=== PATIENT | male | born 1960 | race Caucasian/White ===

== ENCOUNTER → 2016-12-08 | Outpatient (CLI) | payer OTHER ==
[2016-12-08 08:56] LABS: CH 31.5; CHCM 32.3; HCT 44.2 % (39.0-53.0); HDW 2.52; HGB 14.5 gm/dL (13.0-17.5); MCHC 32.7 g/dL (31.0-37.0); MCV 97.9 fL (80.0-100.0); RBC 4.52 m/uL (4.30-5.90); RDW 13.4 % (11.5-15.5); WBC 6.7 k/uL (3.8-10.6)
[2016-12-08 09:07] LABS: Amorphous Sediment,Urine Few /hpf; Appearance,Urine Cloudy (Clear); Bilirubin,Urine Negative (Negative); Glucose,Urine (UA) Negative (Negative); Ketones,Urine Negative (Negative); Leukocyte Esterase,Urine Negative (Negative); Mucus,Urine Rare /hpf; Nitrite,Urine Negative (Negative); PH, Urine 7.5 (5.0-8.0); Particle Count 23905; Protein,Urine Negative (Negative); Squamous Epithelial Cell,Urine <1 /hpf (0-4); UA Billing (MACRO vs. MICRO) MICRO; Urobilinogen,Urine <2.0 mg/dL (<2.0)
[2016-12-08 10:34] LABS: ALT 25 U/L (21-72); AST 21 U/L (17-59); Alkaline Phosphatase 61 U/L (38-126); Anion Gap 7 mmol/L; Blood Urea Nitrogen 8 mg/dL (9-20); Calcium 9.1 mg/dL (8.4-10.2); Carbon Dioxide 30 mmol/L (22-30); Chloride 107 mmol/L (98-107); Cholesterol 161 mg/dL (<200); Glucose 113 mg/dL (74-99); HDL Cholesterol 59 mg/dL (40-60); Non-African American GFR(MDRD) >60 (>60 ml/min/1.73 sqM); Potassium 4.2 mmol/L (3.5-5.1); Sodium 144 mmol/L (137-145); Total Bilirubin 0.6 mg/dL (0.2-1.3); Total Protein 6.3 g/dL (6.3-8.2); Triglycerides 89 mg/dL (<150)
[2016-12-08 12:52] LABS: Prostate Specific Antigen 0.35 ng/mL (0.00-4.00)
== END | disposition home or self-care (01) ==
LOC: LABWHC1 08:22
PROVIDERS: ATTEND Internal Medicine
DX: N40.0 Benign prostatic hyperplasia without lower urinary tract symptoms (principal); I11.9 Hypertensive heart disease without heart failure; J44.9 Chronic obstructive pulmonary disease, unspecified; K21.0 Gastro-esophageal reflux disease with esophagitis; R35.0 Frequency of micturition
CPT/HCPCS: 36415; 80053; 80061; 81001; 82272; 84153; 84439; 84443; 85027

== ENCOUNTER 2017-11-08 10:59 | Emergency (ER) | payer OTHER ==
[2017-11-08 11:11] VITALS: BP 127/75; PULSE 71; RESP 18; TEMP 97.7
[2017-11-08] MEDS ORDERED: KETOROLAC 30 MG/ML 1 ML VIAL IM STA (12:24)
--- NOTE | 2017-11-08 12:39 | ED ---
Back Pain HPI - General Chief Complaint: Back Pain/Injury Stated Complaint: LOWER BACK PAIN Time Seen by Provider: 11/08/17 12:06 Source: patient, RN notes reviewed Limitations: no limitations - History of Present Illness Initial Comments: This is a 56-year-old male who presents to the emergency department with chief complaint of low back pain. Patient states that last he was cleaning of the back of his car. 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 Patient does state that he has a history of chronic back disorders including degenerative disc disease, herniated disks and pinched nerves. Patient denies any loss of bladder or bowel function. He denies any saddle paresthesias. Patient does state that his right leg does have a intermittent sharp shooting pain down the back of it to his foot and that it does feel numb from time to time. Patient states pain is made worse with twisting and coughing. He states that he takes [place] 10 and tizanidine with minimal relief. He saw his pain management doctor on Sunday and received steroid injections in the low back. He states that this provided no relief. Denies fever, chills, chest pain, shortness of breath, abdominal pain, nausea or vomiting, constipation or diarrhea, dysuria or hematuria, headache or vision changes. - Related Data Home Medications Medication Instructions Recorded Confirmed Albuterol Sulfate [Ventolin HFA] 2 puff INHALATION RT-Q6H 05/29/16 06/01/16 Baclofen [Baclofen] 10 mg PO TID 05/29/16 06/01/16 Gabapentin [Gabapentin] 400 mg PO TID 05/29/16 06/01/16 oxyCODONE HCL/ACETAMINOPHEN 1 tab PO TID PRN 05/29/16 06/01/16 [Percocet 7.5-325 mg] traZODone HCL [Desyrel] 100 mg PO HS PRN 05/29/16 06/01/16 Previous Rx's Medication Instructions Recorded predniSONE 20 mg PO BID #10 tab 11/08/17 Allergies Allergy/AdvReac Type Severity Reaction Status Date / Time streptomycin Allergy Unknown Verified 11/08/17 11:11 Childhood Review of Systems ROS Statement: Those systems with pertinent positive or pertinent negative responses have been documented in the HPI. ROS Other: All systems not noted in ROS Statement are negative. Past Medical History Past Medical History: COPD, Eye Disorder Additional Past Medical History / Comment(s): DJD chronic back pain. BILAT CATARACTS History of Any Multi-Drug Resistant Organisms: None Reported Past Surgical History: No Surgical Hx Reported Past Anesthesia/Blood Transfusion Reactions: No Reported Reaction Past Psychological History: No Psychological Hx Reported Smoking Status: Current every day smoker Past Alcohol Use History: None Reported Past Drug Use History: Marijuana - Past Family History Father Family Medical History: Cancer General Exam - General Exam Comments Initial Comments: General: Awake and alert, well-developed; in no apparent distress. HEENT: Head atraumatic, normocephalic. Pupils are equal, round and reactive to light. Extraocular movements intact. Neck: Supple. Normal ROM. Cardiovascular: Regular rate and rhythm. No murmurs, rubs or gallops. Chest symmetrical. Respiratory: Lungs clear to auscultation bilaterally. No wheezes, rales or rhonchi. Normal respiratory effort with no use of accessory muscles. Musculoskeletal: Normal active range of motion of spine. No bony point vertebral tenderness. There is tenderness on palpation of right SI joint. Sensation is intact. Pedal pulses are 2+ equal and palpable bilaterally. Skin: [place], warm and dry without rashes or lesions. Neurological: Alert and oriented x3. CN II-XII grossly intact. Speech is fluent and answers are appropriate. No focal neuro deficits. Psychiatric: Normal mood and affect. No overt signs of depression or anxiety noted. Limitations: no limitations Course Vital Signs 11/08/17 11:09 Temperature 97.7 F Pulse Rate 71 Respiratory 18 Rate Blood Pressure 127/75 O2 Sat by Pulse 98 Oximetry Medical Decision Making - Medical Decision Making This is a 56-year-old male who presents to the emergency department with chief complaint of acute on chronic back pain. Patient denies any saddle paresthesias or loss of bladder or bowel function. X-ray revealed no acute fractures or dislocation in the lumbar spine. Patient already takes pain medication and muscle relaxers at home. Patient does complain of radiation of pain down the right leg with intermittent tingling. He will be started on oral steroids. He is to follow-up with his primary care physician within 1-2 days. Patient is in agreement with plan voices understanding. All questions were answered. Patient is in no acute distress at this time. - Radiology Data Radiology results: report reviewed X-ray lumbar spine findings: There are 5 lumbar type vertebral bodies identified. There is curvature seen convex to the left. No evidence for compression fracture or subluxation. Moderate to severe degenerative narrowing at L2-3 through L5-S1. The overlying soft tissue appears unremarkable. Impression: No acute fracture or dislocation is seen in the lumbar spine. Disposition Clinical Impression: Acute exacerbation of chronic low back pain Disposition: HOME SELF-CARE Condition: Good Instructions: Acute Low Back Pain (ED), Lumbar Radiculopathy (ED) Additional Instructions: Please take medications as prescribed. Please follow up with primary care provider within 1-2 days. Return to emergency department if symptoms should worsen or any concerns arise. Prescriptions: predniSONE 20 mg PO BID #10 tab Referrals: Mikel Huston MD [Primary Care Provider] - 1-2 days Time of Disposition: 13:24
--- NOTE | 2017-11-08 13:03 | XR ---
EXAMINATION TYPE: XR lumbar spine 2 or 3V DATE OF EXAM: 11/08/2017 CLINICAL HISTORY: pain TECHNIQUE: Three views of the lumbar spine are submitted. COMPARISON: None. FINDINGS: There are 5 lumbar type vertebral bodies identified. There is curvature seen convex to the left. No e vidence for compression fracture or subluxation. Moderate to severe degenerative narrowing at L2-3 th rough L5-S1. The overlying soft tissue appears unremarkable. IMPRESSION: No acute fracture or dislocation is seen in the lumbar spine. ICD 10 NO FRACTURE, INITIAL EVALUATION
[2017-11-08] MEDS ORDERED: predniSONE 50 MG TAB PO STA ×2 (13:20→13:23)
== END 2017-11-08 13:32 | disposition home or self-care (01) ==
LOC: EC 10:59
DX: G89.29 Other chronic pain (principal); M54.5 Low back pain; M48.07 Spinal stenosis, lumbosacral region; M79.604 Pain in right leg; R20.2 Paresthesia of skin; M79.671 Pain in right foot; J44.9 Chronic obstructive pulmonary disease, unspecified; F17.200 Nicotine dependence, unspecified, uncomplicated; Z79.899 Other long term (current) drug therapy; Z88.1 Allergy status to other antibiotic agents
CPT/HCPCS: 72100; 99283; 96372; J1885; J7512

== ENCOUNTER → 2017-11-12 | Outpatient (CLI) | payer OTHER ==
[2017-11-12 10:53] LABS: HCT 46.1 % (39.0-53.0); HGB 13.8 gm/dL (13.0-17.5); MCH 30.4 pg (25.0-35.0); MCHC 29.8 g/dL (31.0-37.0); Macrocytosis Slight; Mean Platelet Volume 7.7; Platelet Count 303 k/uL (150-450); RBC 4.52 m/uL (4.30-5.90); RDW 14.7 % (11.5-15.5); WBC 10.5 k/uL (3.8-10.6)
[2017-11-12 11:10] LABS: ALT 25 U/L (21-72); AST 25 U/L (17-59); Alkaline Phosphatase 50 U/L (38-126); Anion Gap 9 mmol/L; Blood Urea Nitrogen 15 mg/dL (9-20); Calcium 10.1 mg/dL (8.4-10.2); Carbon Dioxide 33 mmol/L (22-30); Chloride 102 mmol/L (98-107); Cholesterol 167 mg/dL (<200); Glucose 106 mg/dL (74-99); HDL Cholesterol 76 mg/dL (40-60); LDL Cholesterol,Calculated 53 mg/dL (0-99); Potassium 3.8 mmol/L (3.5-5.1); Sodium 144 mmol/L (137-145); Total Bilirubin 0.1 mg/dL (0.2-1.3); Total Protein 6.2 g/dL (6.3-8.2); Triglycerides 189 mg/dL (<150)
[2017-11-12 11:25] LABS: T4, Free (Free Thyroxine) 1.03 ng/dL (0.78-2.19)
[2017-11-12 11:39] LABS: Prostate Specific Antigen 0.36 ng/mL (0.00-4.00)
== END | disposition home or self-care (01) ==
LOC: LABWHC1 10:23
PROVIDERS: ATTEND Internal Medicine
DX: Z00.00 Encounter for general adult medical examination without abnormal findings (principal); M54.5 Low back pain; K21.0 Gastro-esophageal reflux disease with esophagitis; N40.0 Benign prostatic hyperplasia without lower urinary tract symptoms; E78.2 Mixed hyperlipidemia; J44.9 Chronic obstructive pulmonary disease, unspecified
CPT/HCPCS: 36415; 80053; 80061; 84153; 84439; 84443; 85027

== ENCOUNTER → 2017-11-13 | Outpatient (CLI) | payer OTHER ==
--- NOTE | 2017-11-13 07:54 | MR ---
EXAMINATION TYPE: MR lumbar spine wo con DATE OF EXAM: 11/13/2017 COMPARISON: 01/02/2015 HISTORY: Radiculopathy, lumbar region CONTRAST: 0 mL intravenous Gadavist. TECHNIQUE: Multiplanar, multisequence images of the lumbar spine were acquired. FINDINGS: L5-S1: Mild disc bulging is anterior thecal sac flattening. No AP spinal canal stenosis present. Face t hypertrophy is present with mild posterior lateral thecal sac compression from ligamentum flavum la xity. Neural foramen are patent. L4-L5: There is a large right paracentral disc herniation with moderate anterior thecal sac compressi on and spinal canal stenosis is not present although there is narrowing of the spinal canal. Addition ally, facet hypertrophy and ligamentum flavum laxity has some posterior lateral thecal sac compressio n further contributing to some narrowing at this level. This is an interval change from prior study. Note is made of small Schmorl's node in the superior endplate of L5. Moderate foraminal narrowing is present bilaterally. L3-L4: There is loss of disc height through this level. Endplate changes are present compatible with Modic type I degenerative change. Residual disc bulge has moderate anterior thecal sac compression. F acet hypertrophy and ligamentum flavum laxity contributing to spinal canal narrowing. This is progres sive from the comparison. Moderate foraminal narrowing is present bilaterally. L2-L3: There is a subligamentous disc herniation L2-L3 extending beyond the endplate of L3. This has mild anterior thecal sac compression. No stenosis is present. Mild facet hypertrophy is present with posterior lateral thecal sac compression. L1-L2: No significant disc bulge or disc herniation. No spinal canal stenosis. No foraminal stenosi s. The cord terminates at the L1 level. T12-L1: No significant disc bulge or disc herniation. No spinal canal stenosis. No foraminal stenos is. IMPRESSION: 1. Moderately large right paracentral disc herniation L4-5 with thecal sac compression. Spinal canal narrowing without stenosis by measurement criteria is present. This is an interval change from compar leanne. 2. Loss of disc height with degenerative endplate changes at L3-4. Moderate size disc herniation that appears progressive from the comparison is contributing to spinal canal narrowing. 3. Moderate bilateral foraminal stenosis L3-4, L4-5.
== END | disposition home or self-care (01) ==
LOC: RADMRIMAIN 06:05
PROVIDERS: ATTEND Internal Medicine
DX: M51.26 Other intervertebral disc displacement, lumbar region (principal); M48.061 Spinal stenosis, lumbar region without neurogenic claudication
CPT/HCPCS: 72148

== ENCOUNTER 2017-12-03 20:07 | Emergency (ER) | payer OTHER ==
[2017-12-03] MEDS ORDERED: IPRATROPIUM-ALBUTEROL 3 ML NEB INHALATION STA (20:57)
--- NOTE | 2017-12-03 21:04 | ED ---
SOB HPI - General Chief Complaint: Shortness of Breath Stated Complaint: SOB Time Seen by Provider: 12/03/17 20:48 Source: patient Mode of arrival: ambulatory Limitations: no limitations - History of Present Illness Initial Comments: This patient is a 57-year-old man presenting with complaints of congestion, cough, shortness of breath, and fatigue that a been going on for about the past 2-3 days. The patient states that previously when he had the symptoms she was diagnosed with pneumonia. The patient also relates that about 4 days ago he had transition to using oral pain medicines to being on methadone, as result of chronic back pain. He states that he also had been taking Valium up until that point that they stop the Valium when he started the methadone. As result he has been having episodes that he describes as "panic attacks. He states that he will be very anxious, somewhat shaky, and little bit short of breath in relation to that. Hip previously been taking Valium for over 4 years. MD Complaint: shortness of breath, cough Onset/Timin -: days(s) Improves With: nothing Worsens With: nothing Known History Of: COPD Associated Symptoms: cough - Related Data Home Medications Medication Instructions Recorded Confirmed Albuterol Nebulized [Ventolin 2.5 mg INHALATION RT-Q6H PRN 12/03/17 12/03/17 Nebulized] Methadone HCl [Methadone Intensol] 45 mg PO DAILY 12/03/17 12/03/17 Previous Rx's Medication Instructions Recorded Albuterol Inhaler [Ventolin Hfa 1 - 2 puff INHALATION Q6HR PRN #1 12/03/17 Inhaler] inhaler predniSONE 20 mg PO BID #8 tab 12/03/17 Allergies Allergy/AdvReac Type Severity Reaction Status Date / Time streptomycin Allergy Unknown Verified 12/03/17 20:52 Childhood Review of Systems ROS Statement: Those systems with pertinent positive or pertinent negative responses have been documented in the HPI. ROS Other: All systems not noted in ROS Statement are negative. Constitutional: Denies: fever, weakness ENT: Reports: congestion Respiratory: Reports: cough, dyspnea Cardiovascular: Denies: chest pain, palpitations, edema Endocrine: Reports: fatigue Gastrointestinal: Denies: abdominal pain, nausea, vomiting, melena Genitourinary: Denies: dysuria, hematuria Musculoskeletal: Reports: back pain (Chronic) Skin: Denies: rash Neurological: Denies: headache, weakness, numbness Psychiatric: Reports: anxiety. Denies: depression, homicidal thoughts, suicidal thoughts Past Medical History Past Medical History: COPD, Eye Disorder Additional Past Medical History / Comment(s): DJD chronic back pain. BILAT CATARACTS History of Any Multi-Drug Resistant Organisms: None Reported Past Surgical History: No Surgical Hx Reported Past Anesthesia/Blood Transfusion Reactions: No Reported Reaction Past Psychological History: Anxiety Smoking Status: Current every day smoker Past Alcohol Use History: None Reported Past Drug Use History: Marijuana - Past Family History Father Family Medical History: Cancer General Exam Limitations: no limitations General appearance: alert, in no apparent distress, cachectic Head exam: Present: atraumatic, normocephalic Eye exam: Present: normal appearance. Absent: scleral icterus, conjunctival injection ENT exam: Present: mucous membranes dry Neck exam: Present: normal inspection, full ROM Respiratory exam: Present: wheezes. Absent: respiratory distress, rales, rhonchi, stridor, accessory muscle use, decreased breath sounds, prolonged expiratory Cardiovascular Exam: Present: regular rate, normal rhythm, normal heart sounds. Absent: systolic murmur, diastolic murmur, rubs, gallop GI/Abdominal exam: Present: soft. Absent: distended, tenderness, guarding, rebound, mass Extremities exam: Present: normal inspection, normal capillary refill. Absent: pedal edema, calf tenderness Back exam: Present: normal inspection. Absent: CVA tenderness (R), CVA tenderness (L) Neurological exam: Present: alert Skin exam: Present: warm, dry, intact, normal color. Absent: rash Course Vital Signs 12/03/17 12/03/17 12/03/17 20:29 20:48 21:13 Temperature 98.7 F Pulse Rate 90 84 Respiratory 16 20 Rate Blood Pressure 166/78 O2 Sat by Pulse 88 L Oximetry 12/03/17 12/03/17 12/03/17 21:23 21:31 22:00 Temperature 98.3 F Pulse Rate 86 70 77 Respiratory 20 18 Rate Blood Pressure 147/71 136/83 O2 Sat by Pulse 97 99 Oximetry 12/03/17 12/03/17 12/03/17 22:09 22:21 22:44 Temperature 98.1 F Pulse Rate 85 86 77 Respiratory 20 Rate Blood Pressure 136/70 O2 Sat by Pulse 94 L Oximetry Medical Decision Making - Medical Decision Making Patient's 57-year-old man presenting with COPD exacerbation. He is feeling better following treatment here. He does feel a half to go home. I did observe the patient off of the nasal cannula oxygen and his sats are now 94%. I did discuss appropriate follow-up and return parameters. - Lab Data Result diagrams: 12/03/17 20:40 12/03/17 20:40 Lab Results 12/03/17 12/03/17 12/03/17 Range/Units 20:40 20:40 20:40 WBC 11.2 H (3.8-10.6) k/uL RBC 4.79 (4.30-5.90) m/uL Hgb 15.4 (13.0-17.5) gm/dL Hct 46.9 (39.0-53.0) % MCV 97.9 (80.0-100.0) fL MCH 32.1 (25.0-35.0) pg MCHC 32.8 (31.0-37.0) g/dL RDW 13.1 (11.5-15.5) % Plt Count 305 (150-450) k/uL Neutrophils % 73 % Lymphocytes % 17 % Monocytes % 6 % Eosinophils % 1 % Basophils % 1 % Neutrophils # 8.2 H (1.3-7.7) k/uL Lymphocytes # 1.9 (1.0-4.8) k/uL Monocytes # 0.7 (0-1.0) k/uL Eosinophils # 0.1 (0-0.7) k/uL Basophils # 0.1 (0-0.2) k/uL D-Dimer 0.31 (<0.60) mg/L FEU Sodium 137 (137-145) mmol/L Potassium 4.4 (3.5-5.1) mmol/L Chloride 94 L (98-107) mmol/L Carbon Dioxide 32 H (22-30) mmol/L Anion Gap 11 mmol/L BUN 17 (9-20) mg/dL Creatinine 0.70 (0.66-1.25) mg/dL Est GFR (MDRD) Af Amer >60 (>60 ml/min/1.73 sqM) Est GFR (MDRD) Non-Af >60 (>60 ml/min/1.73 sqM) Glucose 92 (74-99) mg/dL Calcium 9.6 (8.4-10.2) mg/dL Total Bilirubin 0.4 (0.2-1.3) mg/dL AST 61 H (17-59) U/L ALT 29 (21-72) U/L Alkaline Phosphatase 76 (38-126) U/L Troponin I (0.000-0.034) ng/mL NT-Pro-B Natriuret Pep pg/mL Total Protein 6.8 (6.3-8.2) g/dL Albumin 4.3 (3.5-5.0) g/dL 12/03/17 12/03/17 Range/Units 20:40 20:40 WBC (3.8-10.6) k/uL RBC (4.30-5.90) m/uL Hgb (13.0-17.5) gm/dL Hct (39.0-53.0) % MCV (80.0-100.0) fL MCH (25.0-35.0) pg MCHC (31.0-37.0) g/dL RDW (11.5-15.5) % Plt Count (150-450) k/uL Neutrophils % % Lymphocytes % % Monocytes % % Eosinophils % % Basophils % % Neutrophils # (1.3-7.7) k/uL Lymphocytes # (1.0-4.8) k/uL Monocytes # (0-1.0) k/uL Eosinophils # (0-0.7) k/uL Basophils # (0-0.2) k/uL D-Dimer (<0.60) mg/L FEU Sodium (137-145) mmol/L Potassium (3.5-5.1) mmol/L Chloride (98-107) mmol/L Carbon Dioxide (22-30) mmol/L Anion Gap mmol/L BUN (9-20) mg/dL Creatinine (0.66-1.25) mg/dL Est GFR (MDRD) Af Amer (>60 ml/min/1.73 sqM) Est GFR (MDRD) Non-Af (>60 ml/min/1.73 sqM) Glucose (74-99) mg/dL Calcium (8.4-10.2) mg/dL Total Bilirubin (0.2-1.3) mg/dL AST (17-59) U/L ALT (21-72) U/L Alkaline Phosphatase (38-126) U/L Troponin I 0.033 (0.000-0.034) ng/mL NT-Pro-B Natriuret Pep 206 pg/mL Total Protein (6.3-8.2) g/dL Albumin (3.5-5.0) g/dL - EKG Data -: EKG Interpreted by Me EKG shows normal: sinus rhythm (Rate 84 bpm), axis (Normal), intervals (Normal) , QRS complexes (Normal), ST-T waves (Normal) Rate: normal Interpretation: other (Possible right atrial enlargement.) Disposition Clinical Impression: Acute exacerbation of chronic obstructive airways disease Disposition: HOME SELF-CARE Condition: Good Instructions: COPD (Chronic Obstructive Pulmonary Disease) (ED) Prescriptions: Albuterol Inhaler [Ventolin Hfa Inhaler] 1 - 2 puff INHALATION Q6HR PRN #1 inhaler PRN Reason: Wheezing predniSONE 20 mg PO BID #8 tab Referrals: Mikel Huston MD [Primary Care Provider] - 1-2 days
[2017-12-03 21:09] LABS: Basophils # (A) 0.1 k/uL (0-0.2); Basophils % (A) 1 %; Eosinophils # (A) 0.1 k/uL (0-0.7); Eosinophils % (A) 1 %; HCT 46.9 % (39.0-53.0); HGB 15.4 gm/dL (13.0-17.5); Lymphocytes # (A) 1.9 k/uL (1.0-4.8); Lymphocytes % (A) 17 %; MCH 32.1 pg (25.0-35.0); MCHC 32.8 g/dL (31.0-37.0); MCV 97.9 fL (80.0-100.0); Mean Platelet Volume 7.7; Monocytes # (A) 0.7 k/uL (0-1.0); Monocytes % (A) 6 %; Neutrophils # (A) 8.2 k/uL (1.3-7.7); Neutrophils % (A) 73 %; Platelet Count 305 k/uL (150-450); RBC 4.79 m/uL (4.30-5.90); RDW 13.1 % (11.5-15.5); WBC 11.2 k/uL (3.8-10.6)
[2017-12-03 21:19] LABS: ALT 29 U/L (21-72); AST 61 U/L (17-59); Albumin 4.3 g/dL (3.5-5.0); Alkaline Phosphatase 76 U/L (38-126); Anion Gap 11 mmol/L; Blood Urea Nitrogen 17 mg/dL (9-20); Calcium 9.6 mg/dL (8.4-10.2); Carbon Dioxide 32 mmol/L (22-30); Chloride 94 mmol/L (98-107); Glucose 92 mg/dL (74-99); Potassium 4.4 mmol/L (3.5-5.1); Sodium 137 mmol/L (137-145); Total Bilirubin 0.4 mg/dL (0.2-1.3); Total Protein 6.8 g/dL (6.3-8.2)
--- NOTE | 2017-12-03 21:27 | XR ---
EXAMINATION TYPE: XR chest 2V DATE OF EXAM: 12/03/2017 COMPARISON: 05/29/2016 HISTORY: Difficulty breathing TECHNIQUE: Frontal and lateral views of the chest are obtained. FINDINGS: There is no heart failure. Costophrenic angles are clear. There is mild pulmonary hyperinf lation. There is no evidence of pleural effusion. Mediastinum is normal. Bony thorax appears intact. Heart size is normal. There is a poorly marginated 1.5 cm area of increased density over the anterior right fourth rib. IMPRESSION: Possible new density in the right upper lobe compared to old exam. Shallow oblique views of the chest are recommended for further evaluation.
[2017-12-03] MEDS ORDERED: ALBUTEROL NEBULIZED 2.5 MG/3 ML INHALATION STA (21:49)
[2017-12-03] MEDS ORDERED: predniSONE 20 MG TAB PO STA (21:49)
--- NOTE | 2017-12-03 22:04 | XR ---
EXAMINATION TYPE: XR chest w obliques DATE OF EXAM: 12/03/2017 COMPARISON: Today HISTORY: Cough possible right upper lobe density TECHNIQUE: Shallow oblique views. FINDINGS: There is no heart failure nor confluent pneumonic infiltrate. Lungs are clear. The shallow oblique views show no evidence of a mass or nodule in the right upper lobe is suggested by the earli er exam. There are chest leads. IMPRESSION: No active cardiopulmonary disease. No evidence of a right upper lobe density.
[2017-12-03 22:45] VITALS: BP 136/70; PULSE 77; RESP 20; TEMP 98.1
== END 2017-12-03 22:46 | disposition home or self-care (01) ==
LOC: EC 20:07
DX: J44.1 Chronic obstructive pulmonary disease with (acute) exacerbation (principal); F17.200 Nicotine dependence, unspecified, uncomplicated; Z79.891 Long term (current) use of opiate analgesic; Z88.1 Allergy status to other antibiotic agents
CPT/HCPCS: 36415; 94640 ×2; 93005; 85379; 83880; 80053; 84484; 85025; 71046; 71047; 99285; J7512

== ENCOUNTER 2018-07-28 08:58 | Emergency (ER) | payer OTHER ==
[2018-07-28 09:05] VITALS: RESP 18; TEMP 97.9
[2018-07-28] MEDS ORDERED: ORPHENADRINE 30 MG/ML 2 ML VIAL IM STA (09:18)
[2018-07-28] MEDS ORDERED: KETOROLAC 60 MG/2 ML VIAL IM STA (09:18)
[2018-07-28] MEDS ORDERED: methylPREDNISolone SOD SUCCI 125 MG/2 ML VIAL IM ONE (09:18)
--- NOTE | 2018-07-28 09:19 | ED ---
Back Pain HPI - General Chief Complaint: Back Pain/Injury Stated Complaint: back pain Time Seen by Provider: 07/28/18 09:09 Source: patient, RN notes reviewed, old records reviewed Limitations: no limitations - History of Present Illness Initial Comments: Patient is a 57-year-old male presents to complain of back pain rating down the right leg. Patient states these have history of sciatica before. Patient reports that he has had outpatient x-rays done 2 weeks ago. He reports that the results of these x-rays were on his file at the [facility]. Patient states that he has been prescribed [place] for his back pain who has had a little relief. Patient states that he has had no saddle anesthesias. Denies any abdominal pain. No recent falls or trauma. - Related Data Home Medications Medication Instructions Recorded Confirmed Albuterol Nebulized [Ventolin 2.5 mg INHALATION RT-Q6H PRN 12/03/17 07/28/18 Nebulized] Gabapentin [Neurontin] 300 mg PO TID 07/28/18 07/28/18 HYDROcodone/APAP 7.5-325MG [[place] 1 tab PO Q4H PRN 07/28/18 07/28/18 7.5-325] Previous Rx's Medication Instructions Recorded Albuterol Inhaler [Ventolin Hfa 1 - 2 puff INHALATION Q6HR PRN #1 12/03/17 Inhaler] inhaler Cyclobenzaprine [Flexeril] 10 mg PO TID #20 tab 07/28/18 Dexamethasone 0.75 mg PO DAILY #12 tab 07/28/18 Ketorolac [Toradol] 10 mg PO Q6HR #15 tab 07/28/18 Allergies Allergy/AdvReac Type Severity Reaction Status Date / Time streptomycin Allergy Unknown Verified 07/28/18 09:00 Childhood Review of Systems ROS Statement: Those systems with pertinent positive or pertinent negative responses have been documented in the HPI. ROS Other: All systems not noted in ROS Statement are negative. Past Medical History Past Medical History: COPD, Eye Disorder Additional Past Medical History / Comment(s): DJD chronic back pain. BILAT CATARACTS History of Any Multi-Drug Resistant Organisms: None Reported Past Surgical History: No Surgical Hx Reported Past Anesthesia/Blood Transfusion Reactions: No Reported Reaction Past Psychological History: Anxiety Smoking Status: Current some day smoker Past Alcohol Use History: None Reported Past Drug Use History: None Reported, Marijuana - Past Family History Father Family Medical History: Cancer General Exam - General Exam Comments Initial Comments: This is a 57-year-old male. Alert and oriented. No significant distress. Limitations: no limitations General appearance: alert, in no apparent distress Head exam: Present: atraumatic, normocephalic, normal inspection Eye exam: Present: normal appearance, PERRL, EOMI. Absent: scleral icterus, conjunctival injection, periorbital swelling ENT exam: Present: normal exam, mucous membranes moist Neck exam: Present: normal inspection. Absent: tenderness, meningismus, lymphadenopathy Respiratory exam: Present: normal lung sounds bilaterally. Absent: respiratory distress, wheezes, rales, rhonchi, stridor Cardiovascular Exam: Present: regular rate, normal rhythm, normal heart sounds. Absent: systolic murmur, diastolic murmur, rubs, gallop, clicks GI/Abdominal exam: Present: soft, normal bowel sounds. Absent: distended, tenderness, guarding, rebound, rigid Extremities exam: Present: normal inspection, full ROM, normal capillary refill , other (Normal capillary refill and dorsalis pedis pulse. Full range of motion in the lower extremity noted.). Absent: tenderness, pedal edema, joint swelling, calf tenderness Back exam: Present: normal inspection, tenderness (Patient has tenderness over the right lumbar paraspinal muscles and tenderness at the sciatic notch. Positive straight leg test.) Neurological exam: Present: alert, oriented X3, CN II-XII intact Psychiatric exam: Present: normal affect, normal mood Course Vital Signs 07/28/18 07/28/18 09:00 10:15 Temperature 97.9 F Pulse Rate 84 85 Respiratory 18 18 Rate Blood Pressure 117/71 112/77 O2 Sat by Pulse 96 96 Oximetry Medical Decision Making - Medical Decision Making 57-year-old male presents with complaint of acute exacerbation of chronic back pain. He reports that his sciatic nerve has been bothering him for the past 2 days. He's been on [place] from previous prescription. Patient was even I IM Flexeril, Toradol and Solu-Medrol. Patient advised they cannot prescribe any further [place] at this time. I will give the Patient a prescription for Flexeril , dexamethasone in all is a painter aircraft medication. I discussed return parameters including saddle anesthesias and further evaluation by a collections specialist. Patient agrees to treatment plan will comply. Return parameters were discussed. - Radiology Data Radiology results: report reviewed X-rays negative for any acute osseous lesion. Degenerative changes noted. Existing scoliosis convex to the right thoracic spine in the left lumbar spine. Loss of normal lumbar lordosis. Chronic. Severe degenerative disc disease. Spondylosis deformities present at this level. Retrolisthesis of L3-L4 and L5 and S1. These were present previously. No acute fracture. Disposition Clinical Impression: DDD (degenerative disc disease), lumbar, Sciatica Disposition: HOME SELF-CARE Condition: Good Instructions: Chronic Back Pain (ED) Additional Instructions: Patient advised to take anti-inflammatory medication. Follow-up with primary care provider. Also recommended falling up with orthopedic back specialist. Return to emergency department if any alarming signs or symptoms occur. Prescriptions: Cyclobenzaprine [Flexeril] 10 mg PO TID #20 tab Dexamethasone 0.75 mg PO DAILY #12 tab Ketorolac [Toradol] 10 mg PO Q6HR #15 tab Is patient prescribed a controlled substance at d/c from ED?: No Referrals: Mikel Huston MD [Primary Care Provider] - 1-2 days Mckinley Atkinson DO [Doctor of Osteopathic Medicine] - 1-2 days Time of Disposition: 10:21
--- NOTE | 2018-07-28 10:00 | XR ---
EXAMINATION TYPE: XR lumbar spine 2 or 3V , 3 VIEWS DATE OF EXAM ORDERED: 07/28/2018 HISTORY: Pain. COMPARISON: Previous study dated 11/08/2017. FINDINGS: There is an S-shaped scoliosis convex to the right in the thoracic spine and to the left i n the lumbar spine. There is a loss of the normal lumbar lordosis. This is chronic. There is severe d egenerative disc disease at L3-4 and there is spondylosis deformans present at this level. There is a retrograde listhesis of L3 on L4 and L5 on S1. These were present previously. No acute fracture is s een. There is hypertrophic spondylosis at L2-3 and L3-4. The pedicles are intact. IMPRESSION: 1. NO ACUTE OSSEOUS LESION. 2. DEGENERATIVE CHANGE.
[2018-07-28 10:16] VITALS: BP 112/77; PULSE 85
== END 2018-07-28 10:47 | disposition home or self-care (01) ==
LOC: EC 08:58
DX: M51.36 Other intervertebral disc degeneration, lumbar region (principal); M54.40 Lumbago with sciatica, unspecified side; G89.29 Other chronic pain; J44.9 Chronic obstructive pulmonary disease, unspecified; F17.200 Nicotine dependence, unspecified, uncomplicated; Z79.899 Other long term (current) drug therapy; Z88.1 Allergy status to other antibiotic agents
CPT/HCPCS: 72100; 99284; 96372 ×3; J2360; J2930; J1885

== ENCOUNTER → 2018-12-10 | Outpatient (CLI) | payer MEDICARE, OTHER ==
--- NOTE | 2018-12-11 09:06 | MR ---
EXAMINATION TYPE: MR lumbar spine wo con DATE OF EXAM: 12/10/2018 COMPARISON: Prior MR lumbar spine 11/13/2017 HISTORY: Degenerative disc disease, herniated disc TECHNIQUE: Multiplanar, multisequence images of the lumbar spine were acquired. L1-L2: There is facet arthropathy present. No significant central stenosis or foraminal encroachment. No disc herniation. L2-L3: Circumferential posterior extension of endplate disc complex causes anterior mass effect on th e thecal sac. Mild central stenosis. Facet arthropathy with hypertrophy of the ligamentum flavum caus es posterior lateral mass effect on the thecal sac. Circumferential extension of endplate disc comple x with associated spinal curvature causes some right greater than left foraminal encroachment. L3-L4: Circumferential posterior extension of endplate disc complex causes anterior mass effect on th e thecal sac. There is lateral extension causing right-sided foraminal encroachment greater than left . Only mild central stenosis. L4-L5: Circumferential posterior disc bulge causes mild anterior mass effect on the thecal sac. No si gnificant central stenosis. Facet arthropathy with hypertrophy ligamentum flavum is noted, circumfere ntial extension of endplate disc complex results in bilateral foraminal encroachment. L5-S1: Posterior broad-based disc bulge causes mild anterior mass effect on the thecal sac is prior e xam. There is facet arthropathy with hypertrophy of the ligamentum flavum causing posterior lateral m ass effect on the thecal sac as well as some encroachment on the lateral recess greater on the left. Circumferential extension of endplate disc complex encroaches more on the left. No central stenosis. Lumbar segments are intact. No paraspinal masses are identified. Conus medullaris has a normal appe arance. Alignment is stable. Endplate discogenic marrow signal changes are present at multiple levels but greatest at L3-4 as on prior, there is associated loss of disc height and signal at L3-4 as well as L2-3, L4-5 and L5-S1. There is multilevel spondylosis and spinal curvature as on prior. IMPRESSION: Degenerative disc disease, facet arthropathy, multilevel foraminal encroachment is not significantly changed.
== END | disposition home or self-care (01) ==
LOC: RADMRIMAIN 19:58
PROVIDERS: ATTEND Family Medicine
DX: M51.36 Other intervertebral disc degeneration, lumbar region (principal); M46.97 Unspecified inflammatory spondylopathy, lumbosacral region
CPT/HCPCS: 72148

== ENCOUNTER → 2019-11-05 | Outpatient (CLI) | payer MEDICARE, OTHER ==
--- NOTE | 2019-11-05 17:05 | MR ---
EXAMINATION TYPE: MR lumbar spine wo/w con DATE OF EXAM: 11/05/2019 COMPARISON: Prior MRI lumbar spine 12/10/2018 HISTORY: degenerative disk disease, lower back pain TECHNIQUE: Multiplanar, multisequence images of the lumbar spine were acquired utilizing [address] gadolinium contrast. L1-L2: Normal disc appearance without desiccation. No herniation, protrusion or disc bulging. No ca nal stenosis is present. Foramina are patent bilaterally. L2-L3: Circumferential extension of endplate disc complex is somewhat eccentric towards the right ext ending towards the neural foramen and causing anterolateral mass effect on the thecal sac, mild spina l stenosis, foraminal encroachment noted on the right. There is some facet arthropathy present. L3-L4: Posterior extension of endplate disc complex causes anterior mass effect on the thecal sac, ci rcumferential extension of endplate disc complex results in foraminal encroachment greater on the rig ht than on the left. There is mild central stenosis. There is some facet arthropathy present. L4-L5: Posterior disc herniation causes anterior mass effect on the thecal sac and may progressed sli ghtly in the interval, there is moderate central stenosis. Circumferential extension of endplate disc complex results in foraminal encroachment bilaterally as on prior exam. Facet arthropathy with hyper trophy ligamentum flavum is again noted. L5-S1: Facet arthropathy changes are stable. There is hypertrophy ligamentum flavum. No significant s eric stenosis. Minimal posterior disc bulge causes only slight anterior mass effect on the thecal sa c, possible contact of the proximal S1 nerve roots. Lumbar segments are intact. No paraspinal masses are identified. Conus medullaris has a normal appe arance. Spinal curvature is again noted. Lumbar vertebral bodies show preserved height. There is mult ilevel spondylosis. Loss of disc height signal is greatest at L3-4 as on prior with extensive endplat e irregularity. Loss of disc height and signal greatest at L2-3, L3-4, L4-5, L5-S1, vacuum phenomenon present at intervertebral disc spaces at L4-5, L3-4, L2-3, L5-S1. There is some enhancement posterio r to the disc at L4-5 possibly representing some granulation tissue. Some enhancement also present al bryan the disc space at L3-4. IMPRESSION: Degenerative disc disease is similar to prior exam, granulation tissue at L4-5 may be slightly progre ssed with some slight increase in the mass effect on the thecal sac at this level. There is multileve l facet arthropathy and foraminal encroachment as described.
== END | disposition home or self-care (01) ==
LOC: RADMRIMAIN 15:40
PROVIDERS: ATTEND Family Medicine
DX: M51.36 Other intervertebral disc degeneration, lumbar region (principal); M46.96 Unspecified inflammatory spondylopathy, lumbar region; M46.97 Unspecified inflammatory spondylopathy, lumbosacral region
CPT/HCPCS: 72158; A9585

== ENCOUNTER → 2020-01-16 | Outpatient (CLI) | payer MEDICARE, OTHER ==
--- NOTE | 2020-01-16 14:46 | CT ---
EXAMINATION TYPE: CT abdomen pelvis wo/w con DATE OF EXAM: 01/16/2020 COMPARISON: None INDICATION: gross hematuria, frequent urination, bladder edema DLP: 578 mGycm, Automated exposure control for dose reduction was used. CONTRAST: 100 mL of Isovue 300. Study performed with Oral Contrast TECHNIQUE: Axial images were obtained from above the diaphragm to the pubic rami in the axial plane a t 5 mm thick sections. Reconstructed images are reviewed on the computer in the coronal plane. FINDINGS: Limited CT sections are obtained the lung bases. There is some minimal infiltrate adjacent to the de scending thoracic aorta within the left medial lung base.. CT ABDOMEN: Liver: Few small scattered hypodensities are within the liver too small to classify. These may be sma ll hepatic cysts. Spleen: Normal Pancreas: Normal Adrenal glands: The adrenal glands are normal. Gallbladder: Normal Kidneys: No masses are evident. No hydronephrosis is present. No cysts are present. Delayed images were obtained through the kidneys, which remain unremarkable. Aorta: Vascular calcification is within the aorta. Inferior vena cava: Normal. CT PELVIS: Visualized loops of bowel distended with oral contrast appear unremarkable. Oral contrast extends to the distal redundant transverse colon. Distal colon is decompressed. Rectum is not well defined. Eccentric thickening on the left the distal rectum is not excluded. Dista l sigmoid colon through the presacral space is decompressed. Appendix: Not clearly identified. No suspicious inflammatory changes or dilated tubular structures ar e evident. Urinary bladder: There is irregular thickening of the urinary bladder. On delayed images the ureterov esical junction with contrast appears normal. Contrast is layering within the urinary bladder. This a ppears to identify a large mass along the right border of the urinary bladder measuring approximately 5 x 2.4 cm in size. Some additional irregular wall thickening is along the anterior urinary bladder. Findings are suspicious for neoplasm. Genitourinary structures: Prostate is slightly prominent. Osseous structures: No suspicious lytic or sclerotic lesions. Degenerative disc changes noted L3-L4. Some mild posterior inferior endplate spurring at L3 is noted. Endplate sclerosis is present that lev el. Mild scoliosis is present coronal plane with a convexity to the left. IMPRESSIONS: 1. Irregular mass within the right lateral aspect of the urinary bladder best visualized on delayed contrast imaging with continuity with irregular wall thickening along the anterior portion of the uri nary bladder. Findings suspicious for urinary bladder neoplasm. 2. No hydronephrosis or hydroureter is evident. Right ureteral vesicle junction is in close approxima tion with the mass. A Yellow level critical message alert has been initiated for Praveen Wilkerson MD via the [employer] Critical Results System on 01/16/2020 2:44 PM. This message alert has been sent to Praveen Wilkerson MD via the preferences provided by the clinician for the receipt of Radiology Critical Findings. [place] e ID [id number].
== END | disposition home or self-care (01) ==
LOC: RADCTMAIN 10:46
PROVIDERS: ATTEND Urology
DX: N32.89 Other specified disorders of bladder (principal)
CPT/HCPCS: 74178; Q9967

== ENCOUNTER → 2020-02-04 | Outpatient (CLI) | payer MEDICARE, OTHER ==
--- NOTE | 2020-02-04 08:36 | XR ---
EXAMINATION TYPE: XR chest 2V DATE OF EXAM: 02/04/2020 COMPARISON: 12/03/2017 HISTORY: Bladder cancer TECHNIQUE: Frontal and lateral views of the chest are obtained. FINDINGS: There is no focal air space opacity, pleural effusion, or pneumothorax seen. Extensive emp hysematous changes of the lungs are seen with increased retrosternal airspace and pulmonary hyperinfl ation as well as biapical lucency. There is also tapering of the pulmonary vasculature and hilar prom inence, likely on the basis of pulmonary arterial hypertension. The cardiac silhouette size is within normal limits. The osseous structures are intact. Mild multilevel degenerative change of the spine . IMPRESSION: 1. No acute cardiopulmonary process. 2. Extensive edematous changes of the lungs and hilar prominence that most likely is on the basis of pulmonary arterial hypertension. CT thorax could confirm the absence of hilar adenopathy.
--- NOTE | 2020-02-04 12:27 | NM ---
EXAMINATION TYPE: NM bone scan whole body DATE OF EXAM: 02/04/2020 COMPARISON: CT abdomen and pelvis January 16, 2020. MRI lumbar spine November 05, 2019 HISTORY: Newly diagnosed bladder cancer. Delayed whole-body scanning was performed following the injection of 21.9 mCi Tc 99m MDP. Images acq uired 3.5 hours post injection. Whole body images in anterior and posterior projection along with ded icated spot images of the thorax abdomen and pelvis in multiple projections are acquired. FINDINGS: There is no suspicious increased radiotracer uptake to suggest metastatic disease to the patty ne or other suspicious abnormality. Slight scoliotic curvature in the mid lumbar spine redemonstrated with increased uptake right L3-L4 lumbar corresponding to area of increased disc space narrowing and spurring and sclerosis on recent CT. Degenerative change in both knees incidentally noted with symme tric mild uptake. IMPRESSION: No scintigraphic evidence of metastatic disease to the bone.
== END | disposition home or self-care (01) ==
LOC: RADNMMAIN 07:55
PROVIDERS: ATTEND Urology
DX: C67.9 Malignant neoplasm of bladder, unspecified (principal); R60.9 Edema, unspecified; R59.0 Localized enlarged lymph nodes
CPT/HCPCS: 71046; 78306; A9503

== ENCOUNTER → 2020-03-02 | Outpatient (CLI) | payer MEDICARE, OTHER ==
[2020-03-02 14:17] LABS: African American GFR (CKD) >90 (>60 ml/min/1.73 sqM); Blood Urea Nitrogen 13 mg/dL (9-20); Non-African American GFR(CKD) >90 (>60 ml/min/1.73 sqM)
--- NOTE | 2020-03-02 15:06 | CT ---
EXAMINATION TYPE: CT chest w con DATE OF EXAM: 03/02/2020 COMPARISON: 08/02/2016 HISTORY: recent diagnosis of bladder cancer, mets CT DLP: 265 mGycm, Automated exposure control for dose reduction was used. CONTRAST: Performed injected with 100 mL of Isovue 300. TECHNIQUE: Axial images were obtained at 5 mm thick sections. Reconstructed images are reviewed on [employer] computer in the coronal plane. FINDINGS: Portion of the thyroid visualized is normal. Bilateral apical scarring with few blebs and bulla are present. Emphysematous changes are throughout the bilateral lung stein. There is a low-density mass posterior hilar region on the left. This measures 7.4 cm craniocaudal by 5.3 cm AP by 3.9 cm transverse. No mediastinal or hilar adenopathy is evident. The ascending aorta diameter at the level of the main pulmonary artery is 2.4 cm. The main pulmonary artery diameter at the bifurcation is 2.2 cm. Some coronary artery calcification is present. Limited CT sections are obtained through the upper abdomen. Abdomen is essentially unremarkable. Port ions of the liver visualized appear with some mild fatty infiltration. No masses are evident. Spleen appears unremarkable. Kidneys appear normal. Adrenal glands are unremarkable. IMPRESSIONS: 1. Left posterior medial lung mass with central hypodensity measuring 7.4 x 5.3 x 3.9 cm.
== END | disposition home or self-care (01) ==
LOC: RADCTMAIN 13:41
PROVIDERS: ATTEND Internal Medicine Hematology & Oncology
DX: R91.8 Other nonspecific abnormal finding of lung field (principal); C67.2 Malignant neoplasm of lateral wall of bladder
CPT/HCPCS: 82565; 84520; 71260; 36415; Q9967

== ENCOUNTER → 2020-03-05 | Outpatient (CLI) | payer MEDICARE, OTHER ==
--- NOTE | 2020-03-09 07:36 | PE ---
Nuclear medicine PET/CT HISTORY: Bladder carcinoma, initial Patient received 10.9 mCi F-18 FDG intravenously in delayed scanning was performed from skull base to the mid thighs. Localization and attenuation correction CT scan was performed. Correlation to chest CT 03/02/2020, CT abdomen pelvis 01/16/2020 Neck and chest: There is no cervical or supraclavicular adenopathy evident. In the left upper lobe at the level of the apex there is some probable pleural scarring, SUV is 1.9. Apical emphysematous mary ges are present. Within the left lower lobe patient's underlying mass shows peripheral hypermetabolic uptake, SUV 13.4. No pleural or pericardial effusion. There is no mediastinal, axillary, or hilar ad enopathy. Coronary artery calcifications are noted. ABDOMEN: No adrenal mass or liver mass. There is no retroperitoneal adenopathy or ascites. Right-side d hydronephrosis is present. Urinary bladder shows wall thickening which may be related to patient's bladder carcinoma. Osseous structures show diffuse increased uptake. There are areas of mixed sclerosis throughout much of the spine and pelvis, bones of the chest including the sternum focal lucency is present in the rig ht ilium on axial image #188. Sclerotic focus present within the right ischium on axial image 238. L1 shows some increased uptake, SUV is 3. IMPRESSION: There is hypermetabolic uptake associated with patient's left lower lobe lung mass. Diffi cult to exclude bony metastatic disease, lumbar MRI may be of benefit. Right-sided hydronephrosis.
== END | disposition home or self-care (01) ==
LOC: RADPETMAIN 14:47
PROVIDERS: ATTEND Internal Medicine Hematology & Oncology
DX: R91.8 Other nonspecific abnormal finding of lung field (principal); N13.30 Unspecified hydronephrosis; C67.2 Malignant neoplasm of lateral wall of bladder; C79.51 Secondary malignant neoplasm of bone
CPT/HCPCS: 78815; A9552

== ENCOUNTER → 2020-03-15 | Outpatient (CLI) | payer MEDICARE, OTHER ==
--- NOTE | 2020-03-16 15:13 | MR ---
EXAMINATION TYPE: MR lumbar spine wo/w con DATE OF EXAM: 03/15/2020 COMPARISON: Right lumbar spine November 05, 2019. Prior PET/CT March 05, 2020. HISTORY: Spinal Lesion. Abnormal Prior Exam, Follow up. Lower Right sided Back Pain. History of bladd er cancer. TECHNIQUE: Multiplanar, multisequence images of the lumbar spine is performed without and with IV contrast, util izing 4.5 mL intravenous Gadavist FINDINGS: Persistent slight levoconvex scoliotic curvature centered at L2 level. Persistent slight gr mirza 1 retrolisthesis L2 on L3. Sagittal images of the lumbar spine show vertebral body heights to rem ain satisfactory. Stable straightened alignment on sagittal images. Multilevel disc desiccation L2-L3 through the L5-S1 levels with mild to moderate multilevel disc space narrowing. More moderate to adv anced disc space narrowing with heterogeneous Modic type II endplate changes L3-L4 level and moderate to severe anterior spurring redemonstrated. The conus medullaris remains normal in position and sig nal ending mid T12 level. Axial images show the T12-L1 and L1-L2 levels to appear within normal limits. Axial images at the L2-L3 level show moderate to severe broad-based disc bulge with right paracentral disc protrusion component effacing the anterolateral thecal sac on axial image 25 with moderate bila teral inferior neural foraminal narrowing. No significant change from prior. Axial images at L3-L4 level show large broad-based disc bulge effacing anterior thecal sac with mild facet degenerative changes bilaterally causing moderate bilateral neural foraminal narrowing. No sign ificant change from prior. Axial images at L4-L5 level show annular tear along with moderate to severe broad-based posterior dis c protrusion effacing anterior thecal sac. There are mild/moderate facet degenerative changes and lig ament flavum hypertrophy causing mild to moderate bilateral inferior neural foraminal narrowing. No s ignificant change from prior. Axial images at L5-S1 level show mild/moderate facet degenerative changes bilaterally with central di sc protrusion. Bilateral neural foramina are patent. There is moderate right-sided hydronephrosis which correlates with recent PET/CT. No suspicious postcontrast enhancement seen on current study. In retrospect I do not see significant enhancement on prior study and prior report does not provide labeled images of questionable enhanceme nt. Recent PET/CT shows no suspicious hypermetabolic uptake in the level of the lumbar spine. IMPRESSION: Multilevel degenerative changes greatest at L2-L3 through the L4-L5 levels as detailed ab ove. No suspicious enhancement currently. No significant change from recent MRI.
== END | disposition home or self-care (01) ==
LOC: RADMRIMAIN 15:00
PROVIDERS: ATTEND Internal Medicine Hematology & Oncology
DX: M48.061 Spinal stenosis, lumbar region without neurogenic claudication (principal); M51.26 Other intervertebral disc displacement, lumbar region; M47.816 Spondylosis without myelopathy or radiculopathy, lumbar region
CPT/HCPCS: 72158; A9585

== ENCOUNTER 2020-03-24 08:57 | Day surgery (SDC) | payer MEDICARE, OTHER ==
[~2020-03-24 08:57] MED LIST: ALPRAZolam 0.5 MG TAB PO ONE
[2020-03-24 09:34] LABS: Mean Platelet Volume 7.7; Platelet Count 278 k/uL (150-450)
[2020-03-24 09:37] VITALS: RESP 16; TEMP 98.3
[2020-03-24 09:55] LABS: Prothrombin Time 10.2 sec (9.0-12.0)
[2020-03-24 10:21] VITALS: BP 110/50; PULSE 87
--- NOTE | 2020-03-24 10:42 | CT ---
EXAMINATION TYPE: CT discontinued procedure DATE OF EXAM: 03/24/2020 COMPARISON: PET/CT 03/05/2020 HISTORY: Left lower lobe lung mass Exam was aborted due to patient inability to cooperate with positioning. No biopsy performed. IMPRESSION: ABORTED BIOPSY
== END 2020-03-24 10:40 | disposition home or self-care (01) ==
LOC: RADPROMAIN 08:57
PROVIDERS: ATTEND Internal Medicine Critical Care Medicine
DX: R91.1 Solitary pulmonary nodule (principal); Z53.9 Procedure and treatment not carried out, unspecified reason
CPT/HCPCS: 36415; 76380; 85049; 85610

== ENCOUNTER → 2020-04-07 | Day surgery (SDC) | payer MEDICARE, OTHER ==
[2020-04-05 11:19] VITALS: BMI 15.0
[~2020-04-07] MED LIST changes: +ALBUTEROL NEB (CONC) 2.5 MG/0.5 ML INHALATION ONE; -ALPRAZolam 0.5 MG TAB PO ONE; +LACTATED RINGERS 1,000 ML IV ONE; +LACTATED RINGERS 1,000 ML IV SCH; +LIDOCAINE 1% INJ 10MG/ML (20 ML MDV) ONE; +LIDOCAINE 2% (PF) 20 MG/ML 5 ML VIAL INHALATION ONE; +LIDOCAINE VISCOUS 300 MG/15 ML CUP MUCOUS MEM ONE; +MIDAZOLAM 2 MG/2 ML VIAL ONE; +PROPOFOL 10 MG/ML 20 ML VIAL IV ONE; +SODIUM CHLORIDE 0.9% 1,000 ML IV SCH; +SUCCINYLCHOLINE CHLORIDE 100 MG/5 ML SYR IV ONE; +fentaNYL (PF) 50 MCG/ML 2 ML AMP ONE
--- NOTE | 2020-04-07 12:00 | CT ---
EXAMINATION TYPE: CT Chest otilia Lagunas Protocol DATE OF EXAM: 04/07/2020 COMPARISON: 03/05/2020 HISTORY: 59-year-old male Janneth, bronchial navigation TECHNIQUE: Contiguous axial scanning of the chest without IV contrast. Expiratory and expiratory imag ing was performed. Coronal and sagittal reconstructions performed. Imaging performed for endobronchia l navigation purposes. CT DLP: 648 mGycm Automated exposure control for dose reduction was used. FINDINGS: Redemonstrated centrally necrotic 5.5 cm medial left lower lobe mass. Surrounding groundglass and reticular changes that could represent areas of pneumonitis. Moderate centrilobular emphysema. Left apical pleural parenchymal scarring. Heart normal size. Visualized upper abdomen shows no gross abnormal. Bones: No osseous destructive process seen. There is diffuse heterogeneity to the marrow space. IMPRESSION: KNOWN CENTRALLY NECROTIC 5.5 CM MEDIAL LEFT LOWER LOBE MASS. SOME SURROUNDING GROUNDGLASS AND RETICUL AR CHANGES COULD REPRESENT AREAS OF PNEUMONITIS. BACKGROUND OF COPD WITH MODERATE EMPHYSEMA. Imaging performed for endobronchial navigation. Diffuse heterogeneity of the marrow space. Consider metabolic or infiltrative processes.
[2020-04-07 13:21] VITALS: TEMP 97.8
--- NOTE | 2020-04-07 13:51 | P.PCN ---
Date of Procedure: 04/07/20 Preoperative Diagnosis: Left lower lobe mass Postoperative Diagnosis: Left lower lobe mass Procedure(s) Performed: Navigational bronchoscopy, endobronchial biopsy of the left lower lobe mass, transbronchial needle aspirate of the left lower lobe mass, bronchial lavage of the left lower lobe. Anesthesia: GETA Surgeon: Anmol Conklin Estimated Blood Loss (ml): 0 Pathology: other Condition: stable Disposition: same day Operative Findings: This procedure was done and operating room. The [employer] navigational system was utilized during the procedure to undergo the biopsies of the left lower lobe mass. Preoperatively, a CAT scan of the chest was done and the information was uploaded into the system with the left lower lobe mass was identified and mapped. The V pads were applied to the patient's chest and following that the patient was brought into the operating room where the patient was intubated and placed on a mechanical ventilator. The intubation process was done by TRAVELING CLERK without any major difficulties. Following that, the flexible bronchoscope was introduced through the endotracheal tube and a quick airway inspection was done. Distal trachea was within normal. Examination of the right side including the right mainstem bronchus, right upper lobe bronchus, bronchus intermedius and right lower lobe bronchus regular lobe bronchus and all of these were patent and within normal limits. Examination of the left side showed a normal left main stem bronchus. Normal left upper lobe and lingular segments. The posterior segment of the left lower lobe was plugged and obstructive and there was endobronchial tumor within the segment. The rest of the segment of the left lower lobe were patent. At this point, using navigational guidance, endobronchial biopsies of the lower lobe mass was done. Multiple transbronchial biopsies were obtained. Following that, transbronchial needle aspirate of the left lower lobe mass was done. At the completion of the procedure, and lavage of the left lower lobe was done. A total of 60 mL of fluid was infused and 25- 30 mL was suctioned back. No bedside complications. The procedure was completed without any complication. The bronchoscope was removed. The patient was transferred recovery in stable condition. Chest x-rays to follow. The patient was discharged home today if no complications following the bronchoscopy. He will follow-up with me in the office to discuss the results.
--- NOTE | 2020-04-07 14:02 | XR ---
EXAMINATION TYPE: XR chest 1V DATE OF EXAM: 04/07/2020 HISTORY: POST BRONCH WITH SUZETTE COMPARISON: 02/04/2020 TECHNIQUE: Single view of the chest is submitted. FINDINGS: Demonstrated are scattered senescent parenchymal change. Left hilar mass redemonstrated. No evidence for pneumothorax. The heart is stable. Hilar and mediastinal structures are within normal limits. Degenerative changes are seen of the dorsal spine. IMPRESSION: 1. Left hilar mass redemonstrated. No evidence for pneumothorax.
[2020-04-07 14:31] VITALS: BP 102/61; PULSE 84; RESP 18
== END ==
LOC: ORWHC2ENDO 09:54
PROVIDERS: ATTEND Internal Medicine Critical Care Medicine
DX: C34.32 Malignant neoplasm of lower lobe, left bronchus or lung (principal); C67.2 Malignant neoplasm of lateral wall of bladder; Z83.3 Family history of diabetes mellitus; J44.9 Chronic obstructive pulmonary disease, unspecified; F17.210 Nicotine dependence, cigarettes, uncomplicated; Z83.6 Family history of other diseases of the respiratory system; Z80.1 Family history of malignant neoplasm of trachea, bronchus and lung; Z98.890 Other specified postprocedural states; Z79.891 Long term (current) use of opiate analgesic; Z79.899 Other long term (current) drug therapy; Z88.1 Allergy status to other antibiotic agents
CPT/HCPCS: 71045; 71250; 31628; 31625; 31624; 31627; J2250; J2001; J3010; J0330; J2704; 31633; 88108; 88305; 88341; 88342

== ENCOUNTER → 2020-04-26 | Outpatient (CLI) | payer MEDICARE | END | disposition home or self-care (01) | LOC: RADMRIMAIN 13:24 | PROVIDERS: ATTEND Internal Medicine Hematology & Oncology | DX: Z53.9 Procedure and treatment not carried out, unspecified reason (principal) ==

== ENCOUNTER → 2020-07-13 | Outpatient (CLI) | payer MEDICARE, OTHER ==
[2020-07-13 14:37] LABS: African American GFR (CKD) >90 (>60 ml/min/1.73 sqM); Blood Urea Nitrogen 16 mg/dL (9-20); Non-African American GFR(CKD) >90 (>60 ml/min/1.73 sqM)
--- NOTE | 2020-07-14 21:37 | CT ---
EXAMINATION TYPE: CT ChestAbdPelvis w con DATE OF EXAM: 07/13/2020 INDICATION: Lung and bladder CA COMPARISON: 03/05/2020 PET scan, 03/02/[address] DLP: 725 mGycm CONTRAST: Performed with Oral Contrast and with IV Contrast, patient injected with 100 mL of Isovue 300. TECHNIQUE: Axial images at 5 mm thick sections. Reconstructed images in the coronal plane. Delayed images through the kidneys. FINDINGS: CT CHEST: Portion of the thyroid visualized is normal. There is a hypodense lesion within the posterior left hilar region measuring 5.2 x 3.8 cm correspondi ng to the prior cancer. There is a 0.7 cm nodule at the posterior medial left lung base. Series 3 image 55. A ring appears to be present within the lingula measuring 0.8 cm. Series 3 image 42 there is a faint density at the ri ght apex measuring 0.6 cm. Series 3 image 11 there may be some pneumonitis change series 3 image 25 r ight midlung. 0.5 cm density is in the posterior left lung. Series 3 image 38. Small densities within the lingula measuring 0.5 cm. Series 3 image 48. There is a density within the posterior left lung b ase measuring 0.7 cm. Series 3 image 58. These nodularities are developing over the interval. The nasrin g mass appears stable. Her graft previous measurement 5.3 x 3.9 cm. No enlarged mediastinal or hilar adenopathy is evident. The ascending aorta diameter at the level of the main pulmonary artery is 2.7 cm. The main pulmonary artery diameter at the bifurcation is 2.[address] ABDOMEN: Liver: Couple of hypodensities are within the liver may be small hepatic cysts. Spleen: Normal Pancreas: Normal Adrenal glands: The adrenal glands are normal. Gallbladder: Normal Kidneys: No masses are evident. There is a moderate right hydronephrosis. Hydroureter is present exte nding to the urinary bladder. No cysts are present. Delayed images were obtained through the kidney s, which remain unremarkable. Aorta: Vascular calcification is within the aorta. Inferior vena cava: Normal. CT PELVIS: Loops of bowel within the abdomen and pelvis are normal. There are loops of bowel which are incom pletely distended or lack oral contrast limiting their evaluation. Appendix: Normal as visualized. Urinary bladder: Urinary bladder is decompressed with limited evaluation. However, the internal wall is suggestive for thickening and irregularity. Urinary bladder mass should be considered. This may be because of the moderate right hydronephrosis process hydroureter Genitourinary structures: Prostate appears within normal limits Osseous structures: Sclerotic lesions are scattered throughout the pelvis and axial skeleton compatib le with metastatic disease. Sternal involvement is evident. There is involvement of the ribs IMPRESSIONS: 1. Stable appearing posterior left midlung mass compatible with patient's prior cancer. 2. There is interval development of multiple small scattered nodules greater on the left than the rig ht suspicious for possible metastasis. 3. Extensive sclerotic metastases present. 4. Urinary bladder is decompressed and appears irregular. Underlying mass is not excluded. Consider e valuation. There is interval development of right hydronephrosis and right hydroureter
== END | disposition home or self-care (01) ==
LOC: RADCTMAIN 13:39
PROVIDERS: ATTEND Internal Medicine Hematology & Oncology
DX: C79.51 Secondary malignant neoplasm of bone (principal); C34.32 Malignant neoplasm of lower lobe, left bronchus or lung; C67.2 Malignant neoplasm of lateral wall of bladder; R91.8 Other nonspecific abnormal finding of lung field; N13.30 Unspecified hydronephrosis
CPT/HCPCS: 82565; 84520; 71260; 74177; 36415; Q9967

== ENCOUNTER → 2020-08-27 | Outpatient (CLI) | payer MEDICARE, OTHER ==
[2020-08-27 12:36] LABS: African American GFR (CKD) >90 (>60 ml/min/1.73 sqM); Blood Urea Nitrogen 11 mg/dL (9-20); Non-African American GFR(CKD) >90 (>60 ml/min/1.73 sqM)
--- NOTE | 2020-08-27 15:35 | CT ---
EXAMINATION TYPE: CT ChestAbdPelvis w con DATE OF EXAM: 08/27/2020 COMPARISON: CT 07/13/2020 HISTORY: Follow up cancer. CT DLP: 467.5 mGycm Automated exposure control for dose reduction was used. CONTRAST: CT scan of the chest, abdomen and pelvis is performed with Oral Contrast and with IV Contrast, patien t injected with 100 mL of Isovue 300. FINDINGS: LUNGS: The left lower lobe lung mass is again noted with central necrosis suspected, lesion measures approximately 5.4 cm in AP dimension by 4.9 cm in transverse dimension by 6.7 cm in cephalad to cauda l dimension. Emphysematous changes are present within the lungs. Peripheral to the mass in the left l ower lobe there is nodularity present similar to prior exam. There is no pleural effusion or pneumoth orax seen. The tracheobronchial tree is patent. MEDIASTINUM: There are no greater than 1 cm hilar or mediastinal lymph nodes. No pericardial effusi on is seen. AORTA: No significant abnormality is seen. OTHER: No additional significant abnormality is seen. LIVER/GB: No significant interval change is appreciated. PANCREAS: No significant abnormality is seen. SPLEEN: No significant abnormality is seen. ADRENALS: No significant abnormality is seen. KIDNEYS: Bilateral hydronephrosis is present, there is decreased nephrogram on the right. Hydronephro sis on the left is a new finding. There is right hydroureter. There is some excretion in the left kid colby. REPRODUCTIVE ORGANS: No gross abnormality seen. BOWEL: No significant abnormality is seen. FREE AIR: No Free Air visible. ASCITES: None seen. RETROPERITONEAL ADENOPATHY: No retroperitoneal adenopathy is seen. LYMPH NODES: No greater than 1 cm abdominal or pelvic lymph nodes are appreciated. URINARY BLADDER: Bladder wall thickening is markedly irregular consistent with bladder carcinoma. PELVIC ADENOPATHY: None visualized. OSSEOUS STRUCTURES: Diffuse sclerosis within the skeleton again noted consistent with metastatic dis ease. IMPRESSION: Interval increase in size in patient's perihilar left lower lobe lung mass. Interval deve lopment of hydronephrosis involving the left kidney.
== END | disposition home or self-care (01) ==
LOC: RADCTMAIN 11:52
PROVIDERS: ATTEND Internal Medicine Hematology & Oncology
DX: N13.30 Unspecified hydronephrosis (principal); C34.32 Malignant neoplasm of lower lobe, left bronchus or lung
CPT/HCPCS: 82565; 84520; 71260; 74177; 36415; Q9967